=== PATIENT | female | born 1945 | race African-American/Black ===

== ENCOUNTER 2017-11-01 17:31 | Emergency (ER) | payer OTHER, BC ==
--- NOTE | 2017-11-01 17:59 | PDOC ---
Rapid Medical Evaluation Time Seen by Provider: 11/01/17 17:56 Medical Evaluation: Allergies Allergy/AdvReac Type Severity Reaction Status Date / Time aspirin Allergy Verified 10/16/15 23:08 11/01/17 17:56 I have performed a brief in-person evaluation of this patient. The patient presents with a chief complaint of: abdominal pain x 1 week Patient reports pain in right lower quadrant with constipation Denies diarrhea or radiation or pain sent by pmd to rule out diverticulitis Pertinent physical exam findings: NAD unlabored breathing +tenderness to right lower quadrant I have ordered the following: xray, labs The patient will proceed to the ED for further evaluation.
[2017-11-01 18:00] VITALS: BP 137/71; PULSE 82; TEMP 98.1; BMI 33.8
[2017-11-01 18:46] LABS: BASO % 0.8 % (0-2.0); EOS % 2.4 % (0-4.5); HEMATOCRIT 38.5 % (32.4-45.2); HEMOGLOBIN 12.5 GM/dL (10.7-15.3); LYMPH % 37.9 % (8-40); MCHC 32.6 g/dl (32.0-36.0); MEAN PLT VOLUME 9.6 fl (7.5-11.1); MONO % 8.4 % (3.8-10.2); NEUT % 50.5 % (42.8-82.8); PLATELET COUNT 311 K/MM3 (134-434); RBC 4.32 M/mm3 (3.60-5.2); RDW 14.2 % (11.6-15.6); WHITE BLOOD COUNT 6.4 K/mm3 (4.0-10.0)
[2017-11-01 19:12] LABS: ALBUMIN 3.7 g/dl (3.4-5.0); ANION GAP 6 (8-16); BLOOD UREA NITROGEN 13 mg/dL (7-18); CALCIUM 9.7 mg/dL (8.5-10.1); CHLORIDE 101 mmol/L (98-107); CO2 33 mmol/L (21-32); CREATININE 0.7 mg/dL (0.55-1.02); GLUCOSE,RANDOM 136 mg/dL (74-106); POTASSIUM 3.3 mmol/L (3.5-5.1); SGOT/AST 15 U/L (15-37); SODIUM 140 mmol/L (136-145)
[2017-11-01 19:25] LABS: ALK PHOS 122 U/L (45-117); BILIRUBIN,TOTAL 0.2 mg/dL (0.2-1.0); SGPT/ALT 20 U/L (12-78); TOT PROT 7.5 g/dl (6.4-8.2)
--- NOTE | 2017-11-01 19:53 | PDOC ---
History of Present Illness - General Chief Complaint: Pain, Acute Stated Complaint: PCP SENT Time Seen by Provider: 11/01/17 17:56 History Source: Patient Exam Limitations: No Limitations - History of Present Illness Initial Comments: CHIEF COMPLAINT: 72 y/o afebrile female with PMH DM, HTN c/o right lower abdominal pain for the past 2 weeks. HISTORY OF PRESENT ILLNESS: The patient states the pain is intermittent and she describes it as achy. She states she has also had painful urination for the past week. She denies fever, chills, n/v/d, CP, SOB, back pain, flank pain , hematuria, constipation. The patient admits she does not have a BM daily but did have one this morning and it was normal. Her PMD sent her here today to r/ o ?diverticulitis. PMD is Dr. Storey. Vital signs on arrival are within normal limits. REVIEW OF SYSTEMS: GENERAL/CONSTITUTIONAL: No fever/chills. No weakness. No weight change. HEAD, EYES, EARS, NOSE AND THROAT: No change in vision. No ear pain or discharge. No sore throat. CARDIOVASCULAR: No chest pain or shortness of breath. RESPIRATORY: No cough, wheezing, or hemoptysis. GASTROINTESTINAL: +right lower abdominal pain. No nausea, vomiting, diarrhea, constipation. GENITOURINARY: +dyrusia. No frequency or hematuria. MUSCULOSKELETAL: No joint or muscle swelling or pain. No neck or back pain. SKIN: No rash or easy bruising. NEUROLOGIC: No headache, vertigo, loss of consciousness, or loss of sensation. PHYSICAL EXAM: GENERAL: The patient is awake, alert, and fully oriented, in no acute distress. She is well appearing and ambulatory. HEAD: Normal with no signs of trauma. ENT: Pupils equal, round and reactive to light, extraocular movements intact, sclera anicteric, conjunctiva clear. LUNGS: Clear to auscultation bilaterally. Normal excursion. No respiratory distress or use of accessory muscles. CV: RRR, S1/S2, no MRG. Cap refill < 2 sec. ABDOMEN: Soft, non-distended, TTP of right pelvis. No mcburney's point TTP. No rebound, guarding or rigidity. No suprapubic TTP. No flank pain. BACK: No CVA TTP b/l. EXTREMITIES: Normal range of motion, no edema. NEUROLOGICAL: Normal speech, normal gait. CN II-XII grossly intact. SKIN: Warm, dry, normal turgor, no rashes or lesions noted. Past History - Past Medical History Allergies/Adverse Reactions: Allergies Allergy/AdvReac Type Severity Reaction Status Date / Time aspirin Allergy Verified 11/01/17 17:56 Home Medications: Ambulatory Orders Amlodipine Besylate [Norvasc -] 5 mg PO DAILY 01/17/14 Atenolol/Chlorthalidone [Tenoretic 100/25 Tablet] 1 each PO DAILY 01/17/14 Atorvastatin Ca [Lipitor -] 40 mg PO HS 01/17/14 Clopidogrel Bisulfate [Clopidogrel] 75 mg PO DAILY 01/17/14 Saxagliptin HCl/Metformin HCl [Kombiglyze Xr 2.5-1,000 mg Tab] 1 tab PO BID Methimazole 10 mg PO DAILY 10/16/15 Quinapril HCl [Accupril] 40 mg PO DAILY 10/16/15 Diabetes: Yes HTN: Yes Thyroid Disease: Yes (hyper) - Immunization History Immunization Up to Date: Yes - Suicide/Smoking/Psychosocial Hx Smoking History: Former smoker Have you smoked in the past 12 months: No If you are a former smoker, when did you quit?: 20 yrs Information on smoking cessation initiated: No Hx Alcohol Use: No Drug/Substance Use Hx: No Substance Use Type: None *Physical Exam - Vital Signs Last Vital Signs Temp Pulse Resp BP Pulse Ox 98.1 F 82 19 137/71 97 11/01/17 17:56 11/01/17 17:56 11/01/17 17:56 11/01/17 17:56 11/01/17 17:56 ED Treatment Course - LABORATORY CBC & Chemistry Diagram: 11/01/17 18:30 11/01/17 18:30 - ADDITIONAL ORDERS Additional order review: Laboratory Results 11/01/17 18:30 Sodium 140 Potassium 3.3 L Chloride 101 Carbon Dioxide 33 H Anion Gap 6 L BUN 13 Creatinine 0.7 Creat Clearance w eGFR > 60 Random Glucose 136 H Calcium 9.7 Total Bilirubin 0.2 AST 15 ALT 20 Alkaline Phosphatase 122 H Total Protein 7.5 Albumin 3.7 11/01/17 18:30 RBC 4.32 MCV 89.0 MCHC 32.6 RDW 14.2 MPV 9.6 Neutrophils % 50.5 Lymphocytes % 37.9 Monocytes % 8.4 Eosinophils % 2.4 Basophils % 0.8 Medical Decision Making - Medical Decision Making A/P: 72 y/o female with right lower pelvic pain x 2 weeks. Patient had labs drawn and abd/pelvic ultrasound performed in triage. Labs unremarkable Abd/pelvis xray IMPRESSION: Fecal retention Will send UA/culture to r/o UTI. Patient is refusing pain medication at this time. UA negative for UTI. Was going to send for ultrasound but patient had a complete hysterectomy and oophorectomy. Dr. Sanchez informed Dr. Storey we are discharging the patient home and he is ok with that. Instructed the patient to drink plenty of fluids, take tylenol for pain, follow up with Dr. Storey and return to the ER with any worsening or concerning symptoms The patient verbalizes understanding of all instructions, has no further questions and is awaiting discharge. *DC/Admit/Observation/Transfer Diagnosis at time of Disposition: Fecal retention Qualifiers: Constipation type: unspecified constipation type Qualified Code(s): K59.00 - Constipation, unspecified Abdominal pain Qualifiers: Abdominal location: unspecified location Qualified Code(s): R10.9 - Unspecified abdominal pain - Discharge Dispostion Disposition: HOME Condition at time of disposition: Good - Referrals Referrals: Markus Storey MD [Primary Care Provider] - Call tomorrow - Patient Instructions Printed Discharge Instructions: DI for Abdominal Pain-Adult, DI for Constipation Additional Instructions: Discharge Instructions: -Your labs and urine tests were unremarkable -Your xray showed fecal retention -Please drink at least 64oz of water daily -You can take Tylenol for pain if needed -Follow up with Dr. Storey within 1 week -Return to the ER with any worsening or concerning symptoms. - Post Discharge Activity
[2017-11-01 20:23] LABS: URINE APPEARANCE CLEAR; URINE BILIRUBIN NEGATIVE (<2.0 mg/dL); URINE COLOR STRAW; URINE GLUCOSE (UA) 3+ (NEGATIVE); URINE KETONE NEGATIVE (NEGATIVE); URINE LEUK ESTERASE TRACE (NEGATIVE); URINE NITRITE NEGATIVE (NEGATIVE); URINE PROTEIN NEGATIVE (NEGATIVE); URINE UROBILINOGEN NEGATIVE mg/dL (0.2-1.0)
[2017-11-01 20:37] LABS: EPI CELLS RARE /HPF (FEW)
--- NOTE | 2017-11-02 16:07 | EKG ---
Test Reason : Blood Pressure : / mmHG Vent. Rate : 078 BPM Atrial Rate : 078 BPM P-R Int : 162 ms QRS Dur : 086 ms QT Int : 406 ms P-R-T Axes : 055 041 035 degrees QTc Int : 462 ms NORMAL SINUS RHYTHM CANNOT RULE OUT INFERIOR INFARCT , AGE UNDETERMINED ABNORMAL ECG WHEN COMPARED WITH ECG OF 16-OCT-2015 23:38, MINIMAL CRITERIA FOR INFERIOR INFARCT ARE NOW PRESENT Confirmed by SABINO CAMPOS, MARY ELLEN ([id number]) on 11/02/2017 4:06:37 PM Referred By: Confirmed By:MARY ELLEN GALLO MD
--- NOTE | 2017-11-04 07:28 | PDOC ---
Patient Follow-up (Call Back) - Post ED Follow - Up Condition at time of discharge: Good Disposition at time of original discharge: HOME Reason for Call Back: Abnwl. Microbiology Signs/Symptoms Improved: No - Disposition Rx Needed: Yes Additional Instructions/Notes: Spoke with patient. still has symptoms. Will send rx for keflex. 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
== END 2017-11-01 23:06 | disposition home or self-care (01) ==
LOC: JER 17:31
DX: K59.09 Other constipation (principal); I10 Essential (primary) hypertension; E11.9 Type 2 diabetes mellitus without complications; Z79.84 Long term (current) use of oral hypoglycemic drugs
CPT/HCPCS: 36415; 74021-TC-FY; 80053; 81003; 81015; 85025; 87086; 87186; 93005; 93010; 99282-25

== ENCOUNTER 2020-05-05 11:56 | Inpatient (IN) | payer OTHER, BC ==
[2020-05-05 13:48] LABS: BASO % 0.7 % (0-2.0); HEMATOCRIT 39.2 % (32.4-45.2); LYMPH % 30.9 % (8-40); MCH 30.1 pg (25.7-33.7); MCHC 33.2 g/dl (32.0-36.0); MEAN CELL VOLUME 90.5 fl (80-96); MEAN PLT VOLUME 9.9 fl (7.5-11.1); MONO % 10.3 % (3.8-10.2); NEUT % 56.1 % (42.8-82.8); PLATELET COUNT 312 K/MM3 (134-434); RBC 4.33 M/mm3 (3.60-5.2); RDW 13.8 % (11.6-15.6); WHITE BLOOD COUNT 6.8 K/mm3 (4.0-10.0)
[2020-05-05 13:58] LABS: PROTHROMBIN TIME (PATIENT) 12.1 SEC (9.7-13.0)
[2020-05-05] MEDS ORDERED: CLOPIDOGREL BISULFATE 75 MG TABLET (FP) PO ONE (13:58)
[2020-05-05] MEDS ORDERED: ATORVASTATIN CA 80 MG TABLET (FP) PO ONE (13:58)
[2020-05-05 14:09] LABS: CHLORIDE 105 mmol/L (98-107); POTASSIUM 3.3 mmol/L (3.5-5.1); SODIUM 143 mmol/L (136-145)
[2020-05-05 14:13] LABS: CHOLESTEROL 207 mg/dL (50-200)
[2020-05-05 14:14] LABS: TRIGLYCERIDES 110 mg/dL (0-150)
[2020-05-05 14:15] LABS: LDL CHOLESTEROL (ONLY SJRH) 132 mg/dL (5-100)
[2020-05-05 14:16] LABS: ALBUMIN 3.4 g/dl (3.4-5.0); ANION GAP 6 MMOL/L (8-16); CALCIUM 9.1 mg/dL (8.5-10.1); CO2 32 mmol/L (21-32); GLUCOSE,RANDOM 61 mg/dL (74-106); HDL CHOLESTEROL 56 mg/dL (40-60)
[2020-05-05 14:17] LABS: BLOOD UREA NITROGEN 14.1 mg/dL (7-18)
[2020-05-05 14:18] LABS: CREATININE 0.6 mg/dL (0.55-1.3)
[2020-05-05 14:19] LABS: BILIRUBIN,TOTAL 0.4 mg/dL (0.2-1); SGOT/AST 11 U/L (15-37); SGPT/ALT 16 U/L (13-61); TOT PROT 7.5 g/dl (6.4-8.2)
[2020-05-05 14:20] LABS: ALK PHOS 103 U/L (45-117)
[2020-05-05] MEDS ORDERED: DEXTROSE 50%-WATER - 25 GM/50 ML VIAL IVPUSH ONE ×3 (14:21→21:20)
[2020-05-05] MEDS ORDERED: DEXTROSE 50%-WATER 25 GM/50 ML DISP.SYRIN ONE ×3 (14:44→22:46)
[2020-05-05] MEDS: INSULIN SLIDING SCALE (NOVOLOG) 1 VIAL SQ SCH ×2 (17:33→23:00)
[2020-05-05] MEDS ORDERED: HEPARIN NA (PORCINE) 5,000 UNITS/ML 1ML VIAL ONE (22:46)
[2020-05-05] MEDS: HEPARIN NA (PORCINE) 5,000 UNITS/ML 1ML VIAL SQ SCH (23:00)
[2020-05-05 23:14] LABS: EPI CELLS 4 /uL (0-25.1); HYALINE CASTS 2 /uL (0-3.1); URINE APPEARANCE CLEAR; URINE BACTERIA 533 /uL (0-1359); URINE BILIRUBIN NEGATIVE (NEGATIVE); URINE COLOR YELLOW; URINE GLUCOSE (UA) 3+ (NEGATIVE); URINE KETONE NEGATIVE (NEGATIVE); URINE LEUK ESTERASE NEGATIVE (NEGATIVE); URINE NITRITE NEGATIVE (NEGATIVE); URINE PROTEIN 2+ (NEGATIVE); URINE RBC 6 /uL (0-23.9)
[2020-05-05 23:31] LABS: URINE WBC 138.9 /uL (0-25.8); YEAST FEW (NEGATIVE)
[2020-05-06] MEDS: HEPARIN NA (PORCINE) 5,000 UNITS/ML 1ML VIAL SQ SCH ×3 (06:09→21:47)
[2020-05-06] MEDS: INSULIN SLIDING SCALE (NOVOLOG) 1 VIAL SQ SCH ×4 (06:16→21:59)
[2020-05-06] MEDS ORDERED: DEXTROSE 50%-WATER 25 GM/50 ML DISP.SYRIN ONE ×2 (06:16→11:01)
[2020-05-06] MEDS ORDERED: DEXTROSE 50%-WATER - 25 GM/50 ML VIAL IVPUSH ONE ×2 (06:20→09:52)
[2020-05-06 06:56] LABS: HEMATOCRIT 36.4 % (32.4-45.2); HEMOGLOBIN 12.1 GM/dL (10.7-15.3); MCH 29.7 pg (25.7-33.7); MCHC 33.4 g/dl (32.0-36.0); MEAN PLT VOLUME 9.7 fl (7.5-11.1); PLATELET COUNT 281 K/MM3 (134-434); RBC 4.09 M/mm3 (3.60-5.2); RDW 13.4 % (11.6-15.6); WHITE BLOOD COUNT 8.9 K/mm3 (4.0-10.0)
[2020-05-06 07:03] LABS: INR 1.1 (0.83-1.09); PROTHROMBIN TIME (PATIENT) 13.3 SEC (9.7-13.0)
[2020-05-06 07:11] LABS: BLOOD UREA NITROGEN 11.1 mg/dL (7-18); CALCIUM 8.8 mg/dL (8.5-10.1)
[2020-05-06 07:15] LABS: CREATININE 0.5 mg/dL (0.55-1.3); PHOSPHOROUS 3.9 mg/dL (2.5-4.9)
[2020-05-06] MEDS: METHIMAZOLE 10 MG TABLET (FP) PO SCH (09:09)
[2020-05-06] MEDS: CLOPIDOGREL BISULFATE 75 MG TABLET (FP) PO SCH (10:00)
[2020-05-06] MEDS: KCL 10 MEQ IVPB 10 MEQ/100 ML INFUS.BAG IVPB SCH ×2 (11:51→15:40)
[2020-05-06] MEDS ORDERED: POTASSIUM CHLORIDE TABS 20 MEQ TABLET.ER (FP) PO ONE (14:38)
[2020-05-06] MEDS ORDERED: DEXTROSE 5%-NORMAL SALINE 1,000 ML IV SCH (14:45)
[2020-05-06] MEDS ORDERED: KCL 10 MEQ IVPB 10 MEQ/100 ML INFUS.BAG IVPB SCH (14:45)
[2020-05-06] MEDS ORDERED: NORMAL SALINE IV SCH (15:12)
[2020-05-06] MEDS ORDERED: POTASSIUM CHLORIDE IV SCH (15:12)
[2020-05-06] MEDS ORDERED: DEXTROSE 5% IV SCH (15:12)
[2020-05-06] MEDS: ATORVASTATIN CA 80 MG TABLET (FP) PO SCH (21:47)
[2020-05-07] MEDS: HEPARIN NA (PORCINE) 5,000 UNITS/ML 1ML VIAL SQ SCH ×3 (06:37→21:25)
[2020-05-07 06:46] LABS: BASO % 0.4 % (0-2.0); EOS % 1.3 % (0-4.5); HEMATOCRIT 35.1 % (32.4-45.2); HEMOGLOBIN 11.6 GM/dL (10.7-15.3); LYMPH % 24.7 % (8-40); MCH 29.5 pg (25.7-33.7); MEAN CELL VOLUME 89.5 fl (80-96); MEAN PLT VOLUME 10.2 fl (7.5-11.1); MONO % 12.7 % (3.8-10.2); NEUT % 60.9 % (42.8-82.8); PLATELET COUNT 252 K/MM3 (134-434); RBC 3.92 M/mm3 (3.60-5.2); RDW 13.4 % (11.6-15.6); WHITE BLOOD COUNT 8.1 K/mm3 (4.0-10.0)
[2020-05-07 07:33] LABS: POTASSIUM 3.9 mmol/L (3.5-5.1)
[2020-05-07 07:36] LABS: ALBUMIN 2.9 g/dl (3.4-5.0)
[2020-05-07 07:37] LABS: BLOOD UREA NITROGEN 10.3 mg/dL (7-18); CALCIUM 8.8 mg/dL (8.5-10.1)
[2020-05-07 07:41] LABS: CREATININE 0.6 mg/dL (0.55-1.3)
[2020-05-07 07:42] LABS: TOT PROT 6.3 g/dl (6.4-8.2)
[2020-05-07 07:47] LABS: BILIRUBIN,TOTAL 0.5 mg/dL (0.2-1)
[2020-05-07] MEDS: INSULIN SLIDING SCALE (NOVOLOG) 1 VIAL SQ SCH ×4 (08:38→21:24)
[2020-05-07] MEDS: CLOPIDOGREL BISULFATE 75 MG TABLET (FP) PO SCH (09:39)
[2020-05-07] MEDS: METHIMAZOLE 10 MG TABLET (FP) PO SCH (09:39)
[2020-05-07] MEDS: amLODIPine BESYLATE 10 MG TABLET (FP) PO SCH (09:39)
[2020-05-07] MEDS ORDERED: DEXTROSE 5% IV SCH (10:35)
[2020-05-07] MEDS ORDERED: NORMAL SALINE IV SCH (10:35)
[2020-05-07] MEDS ORDERED: POTASSIUM CHLORIDE IV SCH (10:35)
[2020-05-07 15:10] VITALS: BMI 32.5
[2020-05-07] MEDS: ATORVASTATIN CA 80 MG TABLET (FP) PO SCH (21:24)
[2020-05-08] MEDS: HEPARIN NA (PORCINE) 5,000 UNITS/ML 1ML VIAL SQ SCH ×3 (06:00→15:23)
[2020-05-08] MEDS: INSULIN SLIDING SCALE (NOVOLOG) 1 VIAL SQ SCH ×3 (06:15→11:00)
[2020-05-08 07:15] LABS: HEMATOCRIT 36.6 % (32.4-45.2); HEMOGLOBIN 11.9 GM/dL (10.7-15.3); MCH 29.6 pg (25.7-33.7); MCHC 32.6 g/dl (32.0-36.0); MEAN CELL VOLUME 90.8 fl (80-96); MEAN PLT VOLUME 10.4 fl (7.5-11.1); PLATELET COUNT 243 K/MM3 (134-434); RBC 4.03 M/mm3 (3.60-5.2); RDW 13.8 % (11.6-15.6); WHITE BLOOD COUNT 7.2 K/mm3 (4.0-10.0)
[2020-05-08 07:20] LABS: POTASSIUM 3.6 mmol/L (3.5-5.1)
[2020-05-08 07:25] LABS: ALBUMIN 2.9 g/dl (3.4-5.0)
[2020-05-08 07:26] LABS: BLOOD UREA NITROGEN 9.6 mg/dL (7-18); CALCIUM 9.1 mg/dL (8.5-10.1)
[2020-05-08 07:28] LABS: CREATININE 0.5 mg/dL (0.55-1.3)
[2020-05-08 07:30] LABS: BILIRUBIN,TOTAL 0.6 mg/dL (0.2-1); TOT PROT 6.4 g/dl (6.4-8.2)
[2020-05-08] MEDS: amLODIPine BESYLATE 10 MG TABLET (FP) PO SCH (09:18)
[2020-05-08] MEDS: CLOPIDOGREL BISULFATE 75 MG TABLET (FP) PO SCH (09:18)
[2020-05-08] MEDS: METHIMAZOLE 10 MG TABLET (FP) PO SCH (09:19)
[2020-05-08] MEDS ORDERED: ATENOLOL 50 MG TABLET (FP) PO SCH ×2 (10:00)
[2020-05-08 12:09] VITALS: BP 133/58
[2020-05-08 14:51] VITALS: PULSE 80; TEMP 98.3
== END 2020-05-08 17:00 | DRG 65 ==
LOC: JER 11:56 → JERBED 15:42 → JICU 05-06 00:13
PROVIDERS: ATTEND Internal Medicine
DX: I63.9 Cerebral infarction, unspecified (principal); G81.94 Hemiplegia, unspecified affecting left nondominant side; I10 Essential (primary) hypertension; E05.90 Thyrotoxicosis, unspecified without thyrotoxic crisis or storm; E11.9 Type 2 diabetes mellitus without complications; I69.391 Dysphagia following cerebral infarction; E87.6 Hypokalemia; R47.81 Slurred speech
CPT/HCPCS: 36415; 70450-TC; 70551-TC; 71045-TC-FY; 74230-TC-FY; 80048; 80053; 80061; 81003; 82550; 82962; 83036; 83721; 83735; 84100; 84443; 84484; 85025; 85027; 85610; 85730; 86780; 86850; 86900; 86901; 92611-GN; 93005; 93010; 93306-TC; 93880-TC; 97116-GP; 97162-GP; 99285-25; C9803; J1644; U0003

== ENCOUNTER 2021-05-05 12:16 | Inpatient (IN) | payer OTHER, BC ==
[2021-05-05 12:28] VITALS: BMI 29.2
[2021-05-05 14:40] LABS: BASO % 0.9 % (0-2.0); EOS % 0.9 % (0-4.5); HEMOGLOBIN 12.4 GM/dL (10.7-15.3); LYMPH % 27.9 % (8-40); MCH 30.4 pg (25.7-33.7); MCHC 33.6 g/dl (32.0-36.0); MEAN CELL VOLUME 90.6 fl (80-96); MEAN PLT VOLUME 9.7 fl (7.5-11.1); MONO % 9.2 % (3.8-10.2); NEUT % 61.1 % (42.8-82.8); PLATELET COUNT 322 10^3/uL (134-434); RBC 4.09 M/mm3 (3.60-5.2); RDW 13.5 % (11.6-15.6); WHITE BLOOD COUNT 6.6 K/mm3 (4.0-10.0)
[2021-05-05 14:49] LABS: INR 1.06 (0.83-1.09); PROTHROMBIN TIME (PATIENT) 12.4 SEC (9.7-13.0)
[2021-05-05 14:52] LABS: ACTIVATED PTT 35.4 SECONDS (25.2-36.5)
[2021-05-05 14:53] LABS: EPI CELLS 15 /uL (0-25.1); HYALINE CASTS 4 /uL (0-3.1); URINE APPEARANCE CLOUDY; URINE BACTERIA 205 /uL (0-1359); URINE BILIRUBIN NEGATIVE (NEGATIVE); URINE COLOR YELLOW; URINE GLUCOSE (UA) 3+ (NEGATIVE); URINE KETONE NEGATIVE (NEGATIVE); URINE LEUK ESTERASE 1+ (NEGATIVE); URINE NITRITE NEGATIVE (NEGATIVE); URINE PROTEIN 3+ (NEGATIVE); URINE RBC 10 /uL (0-23.9); URINE UROBILINOGEN 0.2 mg/dL (0.2-1.0); URINE WBC 235 /uL (0-25.8)
[2021-05-05 15:02] LABS: CHLORIDE 107 mmol/L (98-107); SODIUM 144 mmol/L (136-145)
[2021-05-05 15:04] LABS: ALBUMIN 3.3 g/dl (3.4-5.0); CALCIUM 9.6 mg/dL (8.5-10.1)
[2021-05-05 15:05] LABS: ANION GAP 5 MMOL/L (8-16); BLOOD UREA NITROGEN 12.2 mg/dL (7-18); CO2 31 mmol/L (21-32); GLUCOSE,RANDOM 69 mg/dL (74-106)
[2021-05-05 15:07] LABS: SGOT/AST 12 U/L (15-37); SGPT/ALT 14 U/L (13-61)
[2021-05-05 15:08] LABS: CHOLESTEROL 185 mg/dL (50-200); CREATININE 0.6 mg/dL (0.55-1.3)
[2021-05-05 15:09] LABS: BILIRUBIN,TOTAL 0.3 mg/dL (0.2-1); TRIGLYCERIDES 93 mg/dL (0-150)
[2021-05-05 15:10] LABS: ALK PHOS 96 U/L (45-117)
[2021-05-05 15:11] LABS: LDL CHOLESTEROL (ONLY SJRH) 96 mg/dL (5-100)
[2021-05-05 15:12] LABS: HDL CHOLESTEROL 58 mg/dL (40-60)
[2021-05-05] MEDS ORDERED: CLOPIDOGREL BISULFATE 300 MG TABLET PO ONE (15:15)
[2021-05-05] MEDS ORDERED: ATORVASTATIN CA 40 MG TABLET (FP) PO ONE ×2 (15:15→16:32)
[2021-05-05] MEDS ORDERED: ATORVASTATIN CA 40 MG TABLET (FP) ONE ×2 (15:24→17:25)
[2021-05-05] MEDS ORDERED: CLOPIDOGREL BISULFATE 300 MG TABLET ONE (15:24)
[2021-05-05] MEDS ORDERED: CEFTRIAXONE 1,000 MG in DEXTROSE 5%-WATER - 50 ML IVPB ONE (17:28)
[2021-05-05] MEDS ORDERED: DEXTROSE 50%-WATER 25 GM/50 ML DISP.SYRIN ONE (17:29)
[2021-05-05] MEDS ORDERED: DEXTROSE 50%-WATER - 25 GM/50 ML VIAL IVPUSH ONE (17:30)
[2021-05-05] MEDS ORDERED: CEFTRIAXONE 1 GM/50 ML BAG ONE (17:30)
[2021-05-05] MEDS ORDERED: ATORVASTATIN CA 80 MG TABLET (FP) ONE (21:19)
[2021-05-05] MEDS: INSULIN SLIDING SCALE (NOVOLOG) 1 VIAL SQ SCH (22:01)
[2021-05-05] MEDS: METHIMAZOLE 10 MG TABLET PO SCH (22:01)
[2021-05-05] MEDS: ATORVASTATIN CA 80 MG TABLET (FP) PO SCH (22:01)
[2021-05-06] MEDS ORDERED: SODIUM CHLORIDE 1,000 ML IV SCH (07:15)
[2021-05-06 07:26] LABS: BASO % 0.3 % (0-2.0); EOS % 2.4 % (0-4.5); HEMATOCRIT 36.9 % (32.4-45.2); HEMOGLOBIN 12.5 GM/dL (10.7-15.3); LYMPH % 34.1 % (8-40); MCH 30.6 pg (25.7-33.7); MCHC 33.8 g/dl (32.0-36.0); MEAN CELL VOLUME 90.7 fl (80-96); MEAN PLT VOLUME 9.5 fl (7.5-11.1); MONO % 11.2 % (3.8-10.2); PLATELET COUNT 285 10^3/uL (134-434); RBC 4.07 M/mm3 (3.60-5.2); RDW 13.6 % (11.6-15.6); WHITE BLOOD COUNT 6.5 K/mm3 (4.0-10.0)
[2021-05-06] MEDS ORDERED: CLOPIDOGREL BISULFATE 75 MG TABLET (FP) ONE (07:34)
[2021-05-06] MEDS ORDERED: ENOXAPARIN NA (PORCINE) 40 MG/0.4 ML DISP.SYRIN SQ ONE (07:35)
[2021-05-06] MEDS ORDERED: CEFTRIAXONE 1 GM/50 ML BAG ONE (07:36)
[2021-05-06] MEDS: ENOXAPARIN NA (PORCINE) 40 MG/0.4 ML DISP.SYRIN SQ SCH ×2 (07:52→11:28)
[2021-05-06] MEDS: INSULIN SLIDING SCALE (NOVOLOG) 1 VIAL SQ SCH ×4 (07:52→21:26)
[2021-05-06] MEDS: CEFTRIAXONE 1 GM in DEXTROSE 5%-WATER - 50 ML IVPB SCH ×2 (07:53→11:28)
[2021-05-06] MEDS: CLOPIDOGREL BISULFATE 75 MG TABLET (FP) PO SCH ×2 (07:53→11:27)
[2021-05-06 08:04] LABS: ALBUMIN 3.2 g/dl (3.4-5.0); BLOOD UREA NITROGEN 9.7 mg/dL (7-18); CALCIUM 9.3 mg/dL (8.5-10.1); MAGNESIUM 2.2 mg/dL (1.8-2.4)
[2021-05-06 08:07] LABS: CREATININE 0.7 mg/dL (0.55-1.3); PHOSPHOROUS 4.6 mg/dL (2.5-4.9)
[2021-05-06 08:08] LABS: BILIRUBIN,TOTAL 0.5 mg/dL (0.2-1)
[2021-05-06 08:09] LABS: TOT PROT 6.8 g/dl (6.4-8.2)
[2021-05-06] MEDS ORDERED: DEXTROSE 5%-WATER - 50 ML IVPB ONE (11:09)
[2021-05-06] MEDS ORDERED: cefTRIAXone SODIUM 1 GM VIAL ONE (11:09)
[2021-05-06] MEDS: METHIMAZOLE 10 MG TABLET PO SCH ×2 (11:27→21:27)
[2021-05-06] MEDS: ATORVASTATIN CA 80 MG TABLET (FP) PO SCH (21:26)
[2021-05-07] MEDS: INSULIN SLIDING SCALE (NOVOLOG) 1 VIAL SQ SCH ×4 (06:06→21:49)
[2021-05-07] MEDS ORDERED: DEXTROSE 5%-WATER - 50 ML IVPB ONE (09:20)
[2021-05-07] MEDS ORDERED: cefTRIAXone SODIUM 1 GM VIAL ONE (09:20)
[2021-05-07] MEDS: CEFTRIAXONE 1 GM in DEXTROSE 5%-WATER - 50 ML IVPB SCH (09:43)
[2021-05-07] MEDS: ENOXAPARIN NA (PORCINE) 40 MG/0.4 ML DISP.SYRIN SQ SCH (09:43)
[2021-05-07] MEDS: METHIMAZOLE 10 MG TABLET PO SCH ×2 (09:43→21:49)
[2021-05-07] MEDS: CLOPIDOGREL BISULFATE 75 MG TABLET (FP) PO SCH (09:43)
[2021-05-07 11:47] LABS: BLOOD UREA NITROGEN 12.8 mg/dL (7-18)
[2021-05-07 11:50] LABS: CREATININE 0.7 mg/dL (0.55-1.3)
[2021-05-07] MEDS ORDERED: LISINOPRIL 20 MG TABLET ONE (14:52)
[2021-05-07] MEDS: LISINOPRIL 20 MG TABLET PO SCH (14:54)
[2021-05-07] MEDS: ATORVASTATIN CA 80 MG TABLET (FP) PO SCH (21:49)
[2021-05-08 05:28] VITALS: TEMP 97.8
[2021-05-08] MEDS: INSULIN SLIDING SCALE (NOVOLOG) 1 VIAL SQ SCH ×2 (06:12→12:12)
[2021-05-08 07:31] LABS: CALCIUM 9.1 mg/dL (8.5-10.1)
[2021-05-08 07:32] LABS: BLOOD UREA NITROGEN 12.9 mg/dL (7-18)
[2021-05-08 07:35] LABS: CREATININE 0.6 mg/dL (0.55-1.3)
[2021-05-08] MEDS ORDERED: cefTRIAXone SODIUM 1 GM VIAL ONE (09:56)
[2021-05-08] MEDS ORDERED: DEXTROSE 5%-WATER - 50 ML IVPB ONE (09:56)
[2021-05-08] MEDS: CEFTRIAXONE 1 GM in DEXTROSE 5%-WATER - 50 ML IVPB SCH (10:00)
[2021-05-08] MEDS ORDERED: POTASSIUM CHLORIDE TABS 20 MEQ TABLET.ER (FP) PO SCH (10:00)
[2021-05-08] MEDS ORDERED: ATENOLOL 50 MG TABLET (FP) PO SCH (10:00)
[2021-05-08] MEDS ORDERED: amLODIPine BESYLATE 10 MG TABLET (FP) PO SCH (10:00)
[2021-05-08] MEDS: ENOXAPARIN NA (PORCINE) 40 MG/0.4 ML DISP.SYRIN SQ SCH (10:01)
[2021-05-08] MEDS: METHIMAZOLE 10 MG TABLET PO SCH (10:02)
[2021-05-08] MEDS: LISINOPRIL 20 MG TABLET PO SCH (10:02)
[2021-05-08] MEDS: CLOPIDOGREL BISULFATE 75 MG TABLET (FP) PO SCH (10:02)
[2021-05-08 11:40] VITALS: BP 146/69; PULSE 95
[2021-05-08] MEDS ORDERED: POTASSIUM CHLORIDE TABS 20 MEQ TABLET.ER (FP) PO ONE (12:30)
== END 2021-05-08 13:15 | DRG 65 ==
LOC: JER 12:16 → JERBED 16:32 → J4W 05-06 10:34
PROVIDERS: ADMIT Internal Medicine; ATTEND Internal Medicine
DX: I63.89 Other cerebral infarction (principal); G81.91 Hemiplegia, unspecified affecting right dominant side; N39.0 Urinary tract infection, site not specified; I10 Essential (primary) hypertension; E11.9 Type 2 diabetes mellitus without complications; Z79.84 Long term (current) use of oral hypoglycemic drugs; R47.1 Dysarthria and anarthria; E05.90 Thyrotoxicosis, unspecified without thyrotoxic crisis or storm
CPT/HCPCS: 36415; 70450-TC; 70544-TC; 70551-TC; 80048; 80053; 80061; 81003; 82550; 82962; 83036; 83735; 84100; 84443; 84484; 85025; 85610; 85730; 86850; 86900; 86901; 87086; 93005; 93010; 93306-TC; 93880-TC; 97116-GP; 97162-GP; 99285-25; C9803; U0003; U0005